=== PATIENT | female | born 1990 | race Caucasian/White ===

== ENCOUNTER 2016-08-29 12:09 | Outpatient (CLI) | payer MEDICAID | END 2016-08-29 12:10 | disposition home or self-care (01) | DX: M47.22 Other spondylosis with radiculopathy, cervical region (principal); M54.2 Cervicalgia ==

== ENCOUNTER 2016-09-20 10:40 | Emergency (ER) | payer MEDICAID ==
[2016-09-20] MEDS ORDERED: ONDANSETRON ODT 4 MG TABLET TL STA (13:02)
[2016-09-20] MEDS ORDERED: ONDANSETRON ODT 4 MG TABLET ONE (13:05)
[2016-09-20] MEDS ORDERED: PROMETHAZINE 25 MG TABLET PO STA (15:18)
[2016-09-20] MEDS ORDERED: AZITHROMYCIN 250 MG TABLET PO STA (15:18)
[2016-09-20] MEDS ORDERED: PROMETHAZINE 25 MG TABLET ONE (15:20)
[2016-09-20] MEDS ORDERED: AZITHROMYCIN 250 MG TABLET PO ONE (15:20)
== END 2016-09-20 15:28 | disposition home or self-care (01) ==
DX: A09 Infectious gastroenteritis and colitis, unspecified (principal); Z87.891 Personal history of nicotine dependence
CPT/HCPCS: 36415; 80053; 81001; 81025; 82270; 83630; 83690; 85025; 87045; 87046; 99283; A9270; Q0162; Q0169

== ENCOUNTER 2016-09-22 12:20 | Emergency (ER) | payer MEDICAID ==
[2016-09-22] MEDS ORDERED: HYDROmorphone 1 MG/ML SYRINGE IVP STA (12:33)
[2016-09-22] MEDS ORDERED: ONDANSETRON 4 MG/2 ML VIAL IVP STA ×2 (12:33→14:06)
[2016-09-22] MEDS ORDERED: SODIUM CHLORIDE 0.9% 1,000 ML IV ONE (12:41)
[2016-09-22] MEDS ORDERED: HYDROmorphone 1 MG/ML SYRINGE ONE (12:45)
[2016-09-22] MEDS ORDERED: ONDANSETRON 4 MG/2 ML VIAL ONE ×2 (12:45→14:07)
[2016-09-22] MEDS ORDERED: METOCLOPRAMIDE 10 MG/2 ML VIAL IVP STA (13:18)
[2016-09-22] MEDS ORDERED: METOCLOPRAMIDE 10 MG/2 ML VIAL IVP ONE (13:19)
[2016-09-22] MEDS ORDERED: IOPAMIDOL-300 100 ML VIAL IVP ONE (13:51)
== END 2016-09-22 15:18 | disposition home or self-care (01) ==
DX: A04.5 Campylobacter enteritis (principal); I88.0 Nonspecific mesenteric lymphadenitis; R03.0 Elevated blood-pressure reading, without diagnosis of hypertension; Z87.891 Personal history of nicotine dependence
CPT/HCPCS: 36415; 74177; 80053; 83690; 85025; 96361; 96374; 96375; 96376; 99283; 99284; J1170; Q9967

== ENCOUNTER 2016-09-27 | Outpatient (CLI) | payer MEDICAID | END 2016-09-27 11:09 | disposition critical access hospital (66) | CPT/HCPCS: A0425; A0427 ==

== ENCOUNTER 2016-09-27 11:40 | Inpatient (IN) | payer MEDICAID ==
[2016-09-27] MEDS ORDERED: HYDROmorphone 1 MG/ML SYRINGE IVP STA ×2 (11:51→13:08)
[2016-09-27] MEDS ORDERED: PROMETHAZINE 25 MG/1 ML VIAL ONE (11:51)
[2016-09-27] MEDS ORDERED: SODIUM CHLORIDE 0.9% 1,000 ML IV ONE ×3 (11:51→21:30)
[2016-09-27] MEDS ORDERED: SODIUM CHLORIDE 0.9% 50 ML IV ONE (11:51)
[2016-09-27] MEDS ORDERED: HYDROmorphone 1 MG/ML SYRINGE ONE ×2 (11:51→13:10)
[2016-09-27] MEDS ORDERED: PROMETHAZINE INJ 25 MG in SODIUM CHLORIDE 0.9% 50 ML IV STA (11:52)
[2016-09-27] MEDS ORDERED: ONDANSETRON 4 MG/2 ML VIAL ONE ×2 (12:26→13:10)
[2016-09-27] MEDS ORDERED: ONDANSETRON 4 MG/2 ML VIAL IVP STA ×2 (12:26→13:08)
[2016-09-27] MEDS ORDERED: METOCLOPRAMIDE 10 MG/2 ML VIAL IVP STA (14:08)
[2016-09-27] MEDS ORDERED: METOCLOPRAMIDE 10 MG/2 ML VIAL IVP ONE (14:09)
[2016-09-27] MEDS ORDERED: LACTATED RINGERS 1,000 ML IV SCH (15:00)
[2016-09-27] MEDS: CIPROFLOXACIN 400 MG/200 ML 200 ML IV SCH (16:18)
[2016-09-27] MEDS: LACTATED RINGERS 1,000 ML IV SCH ×2 (16:18→23:00)
[2016-09-27] MEDS: SODIUM CHLORIDE FLUSH 0.9% 10 ML SYRINGE IVP SCH (16:19)
[2016-09-27] MEDS ORDERED: IOPAMIDOL-300 100 ML VIAL IVP ONE (16:57)
[2016-09-27] MEDS ORDERED: METOCLOPRAMIDE 10 MG/2 ML VIAL IVP PRN (16:59)
[2016-09-27] MEDS: SODIUM CHLORIDE FLUSH 0.9% 10 ML SYRINGE IVP PRN ×3 (17:41→21:58)
[2016-09-27] MEDS: HYDROmorphone 1 MG/ML SYRINGE IVP PRN ×3 (17:41→21:58)
[2016-09-27] MEDS: PANTOPRAZOLE 40 MG VIAL IVP SCH (18:33)
[2016-09-27] MEDS: ONDANSETRON 4 MG/2 ML VIAL IVP PRN (19:01)
[2016-09-27] MEDS: metroNIDAZOLE 500 MG/100 ML 100 ML IV SCH (22:45)
[2016-09-27] MEDS: ACETAMINOPHEN 325 MG TABLET PO PRN (22:52)
[2016-09-28] MEDS: HYDROmorphone 1 MG/ML SYRINGE IVP PRN ×5 (00:14→22:27)
[2016-09-28] MEDS: metroNIDAZOLE 500 MG/100 ML 100 ML IV SCH ×4 (00:14→18:03)
[2016-09-28] MEDS: ZOLPIDEM 5 MG TABLET PO PRN ×2 (00:26→22:28)
[2016-09-28] MEDS: LACTATED RINGERS 1,000 ML IV SCH (00:26)
[2016-09-28] MEDS: CIPROFLOXACIN 400 MG/200 ML 200 ML IV SCH ×2 (04:07→16:16)
[2016-09-28] MEDS: SODIUM CHLORIDE 0.9% 1,000 ML IV SCH ×2 (04:36→06:44)
[2016-09-28] MEDS: ACETAMINOPHEN 325 MG TABLET PO PRN (04:48)
[2016-09-28] MEDS: ONDANSETRON 4 MG/2 ML VIAL IVP PRN ×2 (04:52→19:35)
[2016-09-28] MEDS: PROCHLORPERAZINE 10 MG/2 ML VIAL IVP PRN (06:44)
[2016-09-28] MEDS: SODIUM CHLORIDE FLUSH 0.9% 10 ML SYRINGE IVP SCH ×3 (06:50→20:25)
[2016-09-28] MEDS ORDERED: SODIUM CHLORIDE 0.9% 500 ML IV ONE (07:30)
[2016-09-28] MEDS: PANTOPRAZOLE 40 MG VIAL IVP SCH ×2 (07:53→16:13)
[2016-09-28] MEDS ORDERED: KETOROLAC 30 MG/ML VIAL IVP SCH (08:00)
[2016-09-28] MEDS: SODIUM CHLORIDE FLUSH 0.9% 10 ML SYRINGE IVP PRN ×7 (08:07→22:28)
[2016-09-28] MEDS ORDERED: POTASSIUM PHOSPHATE 15 MMOL in SODIUM CHLORIDE 0.9% 250 ML IV ONE (09:00)
[2016-09-28] MEDS: POLYETHYLENE GLYCOL 3350 17 GM PACKET PO SCH (09:11)
[2016-09-28] MEDS: MULTIVITAMIN W/MINERALS TABLET PO SCH (09:18)
[2016-09-28] MEDS: NEUTRA-PHOS 250 MG TABLET PO SCH (17:23)
[2016-09-28] MEDS: SACCHAROMYCES BOULARDII 250 MG CAPSULE PO SCH (17:23)
[2016-09-29] MEDS: HYDROmorphone 1 MG/ML SYRINGE IVP PRN ×3 (00:57→09:37)
[2016-09-29] MEDS: SODIUM CHLORIDE FLUSH 0.9% 10 ML SYRINGE IVP PRN ×2 (00:58→04:30)
[2016-09-29] MEDS: metroNIDAZOLE 500 MG/100 ML 100 ML IV SCH ×2 (00:58→06:31)
[2016-09-29] MEDS: CIPROFLOXACIN 400 MG/200 ML 200 ML IV SCH (04:30)
[2016-09-29] MEDS: ONDANSETRON 4 MG/2 ML VIAL IVP PRN (05:47)
[2016-09-29] MEDS: SODIUM CHLORIDE FLUSH 0.9% 10 ML SYRINGE IVP SCH ×2 (05:47→10:29)
[2016-09-29] MEDS: PROCHLORPERAZINE 10 MG/2 ML VIAL IVP PRN ×2 (06:26→10:28)
[2016-09-29] MEDS: PANTOPRAZOLE 40 MG VIAL IVP SCH (06:30)
[2016-09-29] MEDS: POLYETHYLENE GLYCOL 3350 17 GM PACKET PO SCH (08:38)
[2016-09-29] MEDS: SACCHAROMYCES BOULARDII 250 MG CAPSULE PO SCH (08:54)
[2016-09-29] MEDS: NEUTRA-PHOS 250 MG TABLET PO SCH ×2 (08:54→12:18)
[2016-09-29] MEDS ORDERED: CIPROFLOXACIN 250 MG TABLET PO SCH (12:00)
[2016-09-29] MEDS ORDERED: POTASSIUM CHLORIDE 20 MEQ TABLET PO SCH (12:00)
[2016-09-29] MEDS: MULTIVITAMIN W/MINERALS TABLET PO SCH (12:18)
[2016-09-29] MEDS ORDERED: metroNIDAZOLE 250 MG TABLET PO SCH (14:00)
== END 2016-09-29 13:18 | disposition home or self-care (01) | DRG 373 ==
DX: A04.5 Campylobacter enteritis (principal); E86.0 Dehydration; E83.51 Hypocalcemia; E83.39 Other disorders of phosphorus metabolism; I88.0 Nonspecific mesenteric lymphadenitis; Z87.891 Personal history of nicotine dependence

== ENCOUNTER 2016-10-07 12:28 | Outpatient (CLI) | payer MEDICAID ==
[2016-10-07] MEDS ORDERED: GADOBUTROL 7.5 MMOL/7.5 ML VIAL IVP ONE (13:32)
== END 2016-10-07 12:29 | disposition home or self-care (01) ==
DX: G44.52 New daily persistent headache (NDPH) (principal)
CPT/HCPCS: 70553; A9585

== ENCOUNTER 2017-03-03 14:09 | Outpatient (CLI) | payer MEDICAID ==
[2017-03-03 17:51] LABS: BASOPHILS % (AUTO) 0.6 %; EOSINOPHILS # (AUTO) 0.1 10^3/uL (0.0-0.7); EOSINOPHILS % (AUTO) 1.6 %; HCT - HEMATOCRIT 39.7 % (37.0-47.0); HGB - HEMOGLOBIN 13.2 g/dL (12.0-16.0); LYMPHOCYTES # (AUTO) 3.2 10^3/uL (1.5-3.5); LYMPHOCYTES % (AUTO) 41.6 %; MEAN CORPUSCULAR HEMOGLOBIN 28.8 pg (27.0-31.0); MEAN CORPUSCULAR HGB CONC 33.3 g/dL (32.0-36.0); MEAN CORPUSCULAR VOLUME 86.6 fL (81.0-99.0); MEAN PLATELET VOLUME 8.2 fL (7.9-10.8); MONOCYTES # (AUTO) 0.5 10^3/uL (0.0-1.0); MONOCYTES % (AUTO) 6.8 %; NEUTROPHILS # (AUTO) 3.8 10^3/uL (1.5-6.6); NEUTROPHILS % (AUTO) 49.4 %; RED BLOOD COUNT 4.58 10^6/uL (4.20-5.40); RED CELL DISTRIBUTION WIDTH 13.1 % (12.0-15.0); UNCORRECTED WHITE BLOOD COUNT 7.6 x10^3/uL; WHITE BLOOD COUNT 7.6 x10^3/uL (4.8-10.8)
[2017-03-03 18:31] LABS: ALBUMIN/GLOBULIN RATIO 1.6 (1.0-2.2); BILIRUBIN,TOTAL 0.4 mg/dL (0.2-1.0); CALCIUM 9.6 mg/dL (8.5-10.3); CREATININE 1.1 mg/dL (0.4-1.0); POTASSIUM 3.5 mmol/L (3.5-5.0); TOTAL PROTEIN 7.5 g/dL (6.7-8.2)
== END 2017-03-03 14:10 | disposition home or self-care (01) ==
LOC: LAB.F 14:09
PROVIDERS: ATTEND Nurse Practitioner Family
DX: R10.9 Unspecified abdominal pain (principal)
CPT/HCPCS: 36415; 80053; 82150; 83540; 83690; 83735; 84466; 85025

== ENCOUNTER 2017-03-11 11:56 | Outpatient (CLI) | payer MEDICAID ==
[2017-03-11] MEDS: IOPAMIDOL-300 100 ML VIAL IVP ONE (13:57)
[2017-03-11] MEDS: IOPAMIDOL-300 50 ML VIAL PO ONE (14:01)
--- NOTE | 2017-03-11 15:12 | CT Report ---
EXAM: CT ABDOMEN AND PELVIS EXAM DATE: 03/11/2017 01:51 PM. CLINICAL HISTORY: Abdominal pain COMPARISONS: Abdomen and pelvis CT 07/27/2017. TECHNIQUE: Routine helical CT imaging was performed through the abdomen and pelvis. IV contrast: 100 cc [id number]. Enteric contrast: Yes. Reconstructions: Coronal and sagittal. In accordance with CT protocol optimization, one or more of the following dose reduction techniques w ere utilized for this exam: automated exposure control, adjustment of mA and/or KV based on patient s ize, or use of iterative reconstructive technique. FINDINGS: Lung Bases: Unremarkable. Liver: Mildly decreased density of the liver diffusely without focal lesion. Gallbladder/Bile Ducts: Unremarkable. Spleen: Normal. Pancreas: Normal. Adrenal Glands: Normal. Kidneys: Normal. No masses or hydronephrosis. Peritoneal Cavity/Bowel: Normal. No free fluid, free air or adenopathy. No masses or acute inflammato ry process. The appendix is well visualized and normal. Pelvic Organs: The bladder is unremarkable and the uterus is anteverted. Note is made of a 3.5 cm lef t ovarian cyst. Vasculature: No aneurysms or other significant abnormality. Bones: No significant abnormality. Other: None. IMPRESSION: 1. No dilated bowel or focal inflammation. 2. Simple appearing left ovarian cyst measuring 3.5 cm. 3. Diffuse fatty infiltration of the liver. [facility] Referring Provider Line: [phone] SITE ID: [id number]
== END 2017-03-11 11:57 | disposition home or self-care (01) ==
LOC: DI 11:56
PROVIDERS: ATTEND Nurse Practitioner Family
DX: R10.9 Unspecified abdominal pain (principal); N83.202 Unspecified ovarian cyst, left side; K76.0 Fatty (change of) liver, not elsewhere classified
CPT/HCPCS: 74177; Q9967

== ENCOUNTER 2017-04-04 14:54 | Outpatient (CLI) | payer MEDICAID ==
[2017-04-04 19:48] LABS: CREATININE 0.8 mg/dL (0.4-1.0); POTASSIUM 3.4 mmol/L (3.5-5.0)
== END 2017-04-04 14:55 | disposition home or self-care (01) ==
LOC: LAB.F 14:54
PROVIDERS: ATTEND Nurse Practitioner Family
DX: R19.4 Change in bowel habit (principal)
CPT/HCPCS: 36415; 80048; 84443

== ENCOUNTER 2017-09-05 09:22 | Outpatient (CLI) | payer MEDICAID | END 2017-09-05 09:23 | disposition home or self-care (01) | LOC: LAB.F 09:22 | PROVIDERS: ATTEND Nurse Practitioner Family | DX: N91.1 Secondary amenorrhea (principal) | CPT/HCPCS: 36415; 84702 ==

== ENCOUNTER 2017-09-07 14:43 | Outpatient (CLI) | payer MEDICAID | END 2017-09-07 14:44 | disposition home or self-care (01) | LOC: LAB.F 14:43 | PROVIDERS: ATTEND Midwife | DX: O20.0 Threatened abortion (principal) | CPT/HCPCS: 36415; 84702 ==

== ENCOUNTER 2018-03-30 07:33 | Outpatient (CLI) | payer MEDICAID ==
--- NOTE | 2018-03-30 11:13 | Ultrasound Report ---
Reason: ABDOMINAL PAIN, RUQ Procedure Date: 03/30/2018 Accession Number: [id number] / [id number] Procedure: US - Abdomen Limited CPT Code: FULL RESULT: EXAM: ABDOMEN ULTRASOUND LIMITED, RUQ EXAM DATE: 03/30/2018 08:07 AM. CLINICAL HISTORY: Right upper quadrant abdominal pain. COMPARISON: None. TECHNIQUE: Real-time scanning was performed with static images obtained. FINDINGS: Liver: Normal in size and echotexture. Liver measures at least 21 cm. Main portal vein flow: Hepatopetal. Gallbladder: Normal. No stones, wall thickening, or sonographic Oden's sign. Biliary System: CBD measures 5 mm. No intrahepatic or extrahepatic ductal dilatation. Other: The right kidney measures up to 12.8 cm in maximal sagittal dimension and demonstrates an extrarenal pelvis as well as questionable mild pelvicaliectasis. IMPRESSION: Extrarenal pelvis with mild pelvicaliectasis. No cholecystitis. [facility]
== END 2018-03-30 07:34 | disposition home or self-care (01) ==
LOC: DI 07:33
PROVIDERS: ATTEND Internal Medicine
DX: N13.30 Unspecified hydronephrosis (principal); R10.11 Right upper quadrant pain
CPT/HCPCS: 76705

== ENCOUNTER 2018-07-06 18:49 | Outpatient (CLI) | payer MEDICAID ==
--- NOTE | 2018-07-07 02:20 | Ultrasound Report ---
Reason: PELVIC AND PERINEAL PAIN, LACTATING MOTHER Procedure Date: 07/06/2018 Accession Number: [id number] / [id number] Procedure: US - Pelvic w/Transvaginal CPT Code: FULL RESULT: EXAM: PELVIC ULTRASOUND EXAM DATE: 07/06/2018 07:31 PM. CLINICAL HISTORY: PELVIC AND PERINEAL PAIN, LACTATING MOTHER. COMPARISON: None. TECHNIQUE: Realtime transabdominal pelvic scan performed to identify the uterus and adnexa and as an overview of other pelvic structures, followed by transvaginal scan to provide greater detail of the uterus and adnexa, with static image documentation. FINDINGS: Uterus: 9.3 x 6 x 3.5 cm, volume 102 cc. Anteverted position. Normal overall size and echotexture. Masses: None. Endometrium: 5.4 mm. No endometrial mass or polyp. Cervix: Unremarkable. Right Ovary: 2.6 x 1.4 x 1.2 cm, volume 2.3 cc. Normal echotexture and blood flow. Small simple cyst noted. Left Ovary: 2.4 x 1.6 x 1.6 cm, volume 6.1 cc. Normal echotexture and blood flow. Small simple cysts are noted. Free Fluid: None. Other: None. IMPRESSION: Normal pelvic ultrasound. [facility]
== END 2018-07-06 18:50 | disposition home or self-care (01) ==
LOC: DI 18:49
PROVIDERS: ATTEND Midwife
DX: Z39.1 Encounter for care and examination of lactating mother (principal); R10.2 Pelvic and perineal pain
CPT/HCPCS: 76830; 76856

== ENCOUNTER 2019-01-14 13:42 | Outpatient (CLI) | payer MEDICAID ==
[2019-01-14 17:10] LABS: BASOPHILS # (AUTO) 0.1 10^3/uL (0.0-0.1); BASOPHILS % (AUTO) 0.9 %; EOSINOPHILS # (AUTO) 0.1 10^3/uL (0.0-0.7); EOSINOPHILS % (AUTO) 1.5 %; LYMPHOCYTES # (AUTO) 2.3 10^3/uL (1.5-3.5); LYMPHOCYTES % (AUTO) 36.7 %; MEAN CORPUSCULAR HEMOGLOBIN 28.7 pg (27.0-31.0); MEAN CORPUSCULAR VOLUME 84.4 fL (81.0-99.0); MEAN PLATELET VOLUME 8.1 fL (7.9-10.8); MONOCYTES # (AUTO) 0.4 10^3/uL (0.0-1.0); MONOCYTES % (AUTO) 6.2 %; NEUTROPHILS # (AUTO) 3.5 10^3/uL (1.5-6.6); NEUTROPHILS % (AUTO) 54.7 %; PLT - PLATELET COUNT 298 10^3/uL (130-450); RED BLOOD COUNT 4.55 10^6/uL (4.20-5.40); RED CELL DISTRIBUTION WIDTH 13.4 % (12.0-15.0); WHITE BLOOD COUNT 6.4 x10^3/uL (4.8-10.8)
[2019-01-14 17:27] LABS: ALBUMIN 4.3 g/dL (3.2-5.5); ALBUMIN/GLOBULIN RATIO 1.4 (1.0-2.2); ALKALINE PHOSPHATASE 70 IU/L (42-121); ALT ALANINE AMINOTRANSFERASE 27 IU/L (10-60); AST ASPARTATE AMINOTRANSFERASE 23 IU/L (10-42); BILIRUBIN,TOTAL 0.4 mg/dL (0.2-1.0); BUN - BLOOD UREA NITROGEN 14 mg/dL (6-20); CALCIUM 9.7 mg/dL (8.5-10.3); CARBON DIOXIDE - CO2 23 mmol/L (21-32); CHLORIDE 104 mmol/L (101-111); CHOL/HDL RATIO 6.2 (<4.4); CHOLESTEROL 274 mg/dL; CREATININE 0.7 mg/dL (0.4-1.0); GFR - MDRD 98 (>89); GLUCOSE 112 mg/dL (70-100); HDL CHOLESTEROL 44 mg/dL; LDL CHOLESTEROL,CALCULATED 153 mg/dL; LDL/HDL RATIO 3.5 (<4.4); SODIUM 138 mmol/L (135-145); TOTAL PROTEIN 7.4 g/dL (6.7-8.2); VLDL CHOLESTEROL 77 mg/dL
[2019-01-14 18:00] LABS: HB2 TOTAL 13.1 g/dL; HEMOGLOBIN A1C 0.53 g/dL; HEMOGLOBIN A1C % 5.9 % (4.6-6.2)
== END 2019-01-14 13:43 | disposition home or self-care (01) ==
LOC: LAB.F 13:42
PROVIDERS: ATTEND Registered Nurse
DX: R63.5 Abnormal weight gain (principal); R06.83 Snoring; R53.83 Other fatigue
CPT/HCPCS: 36415; 80053; 80061; 83036; 83721; 84443; 85025

== ENCOUNTER 2019-05-30 08:00 | Outpatient (CLI) | payer MEDICAID ==
[2019-05-30 20:52] LABS: CANDIDA GROUP DNA NEGATIVE (NEGATIVE); CANDIDA KRUSEI DNA NEGATIVE (NEGATIVE); TRICHOMONAS VAGINALIS DNA NEGATIVE (NEGATIVE)
== END 2019-05-30 08:01 | disposition home or self-care (01) ==
LOC: LAB.R 08:00
PROVIDERS: ATTEND Family Medicine
DX: N76.0 Acute vaginitis (principal)
CPT/HCPCS: 87661; 87801

== ENCOUNTER 2019-11-29 08:00 | Outpatient (CLI) | payer MEDICAID | END 2019-11-29 23:59 | disposition home or self-care (01) | LOC: LAB.WCP 08:00 | PROVIDERS: ATTEND Registered Nurse | DX: R10.9 Unspecified abdominal pain (principal) | CPT/HCPCS: 87086 ==

== ENCOUNTER 2019-12-13 14:48 | Outpatient (CLI) | payer MEDICAID ==
--- NOTE | 2019-12-14 16:19 | CT Report ---
Reason: ACUTE ABDOMINAL PAIN Procedure Date: 12/13/2019 Accession Number: [id number] / [id number] Procedure: CT - Abdomen/Pelvis WO CPT Code: Final Report FULL RESULT: EXAM: CT ABDOMEN AND PELVIS (CT KUB) EXAM DATE: 12/13/2019 02:59 PM. CLINICAL HISTORY: ACUTE ABDOMINAL PAIN.. Technologist notes: Acute left lower quadrant abdominal pain for 2 weeks, history of constipation, dark urine, concern for kidney stones. COMPARISONS: ABDOMEN/PELVIS W/ 03/11/2017 1:42 PM. TECHNIQUE: Routine axial helical CT imaging was performed through the abdomen and pelvis without IV contrast. Reconstructions: Coronal and sagittal. In accordance with CT protocol optimization, one or more of the following dose reduction techniques were utilized for this exam: automated exposure control, adjustment of mA and/or KV based on patient size, or use of iterative reconstructive technique. FINDINGS: Lung Bases: Unremarkable. Right Kidney/Ureter: No stones, hydronephrosis, or hydroureter. No perinephric fat stranding. Left Kidney/Ureter: No stones, hydronephrosis, or hydroureter. No perinephric fat stranding. Other Solid Organs: Noncontrast images of the solid organs are grossly unremarkable. Gallbladder/Bile Ducts: Unremarkable. Peritoneal Cavity: No free fluid, free air or gregor adenopathy. Areas of apparent mild colonic wall thickening may relate to nondistention versus mild nonspecific colitis. Bowel is otherwise grossly unremarkable. Appendix is normal. There are clustered right lower quadrant mesenteric nodes measuring up to approximately 9 x 12 mm (3/78) Pelvic Organs: No bladder stones or wall thickening. Noncontrast images of the visualized pelvic organs are unremarkable. Vasculature: Unremarkable. Other: No asymmetric sclerosis of the left pubic greater than right pubic bodies, may be degenerative. There is additionally asymmetric sclerosis of the medial right ilium at the SI joint which is increased from prior. IMPRESSION: 1. No hydronephrosis or convincing renal or ureteral calculi. 2. Areas of apparent mild colonic wall thickening may relate to nondistention versus mild nonspecific colitis. 3. Clustered right lower quadrant mesenteric lymph nodes with normal-appearing appendix, could reflect mesenteric adenitis in the correct clinical context. 4. Asymmetric sclerosis of the left greater than right pubic bodies, possibly degenerative. 5. Suggestion of asymmetric chronic right sacroiliitis. 6. Other findings as noted above. [facility]
== END 2019-12-13 14:49 | disposition home or self-care (01) ==
LOC: DI 14:48
PROVIDERS: ATTEND Registered Nurse
DX: R10.9 Unspecified abdominal pain (principal)
CPT/HCPCS: 74176

== ENCOUNTER 2019-12-27 12:09 | Outpatient (CLI) | payer MEDICAID ==
[2019-12-27 12:31] LABS: BASOPHILS # (AUTO) 0.1 10^3/uL (0.0-0.1); BASOPHILS % (AUTO) 0.6 %; EOSINOPHILS # (AUTO) 0.1 10^3/uL (0.0-0.7); EOSINOPHILS % (AUTO) 1.5 %; HGB - HEMOGLOBIN 14.3 g/dL (12.0-16.0); LYMPHOCYTES # (AUTO) 2.5 10^3/uL (1.5-3.5); LYMPHOCYTES % (AUTO) 30.1 %; MEAN CORPUSCULAR HEMOGLOBIN 28.5 pg (27.0-31.0); MEAN CORPUSCULAR HGB CONC 32.8 g/dL (32.0-36.0); MEAN PLATELET VOLUME 9.8 fL (7.9-10.8); MONOCYTES # (AUTO) 0.6 10^3/uL (0.0-1.0); MONOCYTES % (AUTO) 7.8 %; NEUTROPHILS # (AUTO) 4.9 10^3/uL (1.5-6.6); NEUTROPHILS % (AUTO) 59.8 %; PLT - PLATELET COUNT 253 10^3/uL (130-450); RED BLOOD COUNT 5.01 10^6/uL (4.20-5.40); RED CELL DISTRIBUTION WIDTH 13.4 % (12.0-15.0); WHITE BLOOD COUNT 8.3 x10^3/uL (4.8-10.8)
[2019-12-27 12:48] LABS: BILIRUBIN,URINE NEGATIVE (NEGATIVE); GLUCOSE, URINE (UA) NEGATIVE (NEGATIVE); KETONES,URINE (UA) NEGATIVE (NEGATIVE); LEUKOCYTE ESTERASE, URINE NEGATIVE (NEGATIVE); NITRITE,URINE NEGATIVE (NEGATIVE); OCCULT BLOOD,URINE NEGATIVE (NEGATIVE); PROTEIN,URINE NEGATIVE (NEGATIVE); UROBILINOGEN,URINE 0.2 (NORMAL) E.U./dL (NORMAL)
[2019-12-27 12:51] LABS: CLARITY,URINE CLEAR (CLEAR)
[2019-12-27 12:54] LABS: ALBUMIN 4.4 g/dL (3.2-5.5); ALBUMIN/GLOBULIN RATIO 1.3 (1.0-2.2); BILIRUBIN,TOTAL 0.8 mg/dL (0.2-1.0); CALCIUM 9.2 mg/dL (8.5-10.3); CREATININE 0.8 mg/dL (0.4-1.0); TOTAL PROTEIN 7.9 g/dL (6.7-8.2)
[2019-12-27 12:58] LABS: HB2 TOTAL 15.2 g/dL; HEMOGLOBIN A1C 0.53 g/dL; HEMOGLOBIN A1C % 5.3 % (4.6-6.2)
== END 2019-12-27 12:10 | disposition home or self-care (01) ==
LOC: LAB 12:09
PROVIDERS: ATTEND Physician Assistant
DX: R73.9 Hyperglycemia, unspecified (principal); R14.0 Abdominal distension (gaseous); R11.2 Nausea with vomiting, unspecified; R10.9 Unspecified abdominal pain; Z80.0 Family history of malignant neoplasm of digestive organs
CPT/HCPCS: 36415; 80053; 81001; 81003; 83036; 84443; 84702; 85025; 87086

== ENCOUNTER 2019-12-31 12:00 | Emergency (ER) | payer MEDICAID ==
[2019-12-31] MEDS ORDERED: HYDROmorphone 2 MG/ML VIAL IM STA (12:52)
--- NOTE | 2019-12-31 13:26 | ED Physician Documentation ---
History of Present Illness - Stated complaint Stated Complaint: BACK PX - Chief complaint Chief Complaint: Back Pain - History obtained from History obtained from: Patient - History of Present Illness Timing: Prior to arrival Pain level max: 9 Pain level now: 9 Severity Comments: sharp; radiates across the low back bilaterally Improved by: percocet at home Worsened by: standing, laying, walking - Additonal information Additional information: 29 year old female here with acute onset low back pain. reports lifting a heavy wheelbarrow yesterday afternoon/evening. she felt a sudden sharp pull in her low back and dropped immediately to the ground. Since then "excruciating" low back pain. No fevers. no saddle anesthesia. No hx of IVDU, cancer or spinal surgery. pt took motrin at home without relief, then took her moth in laws percocet which helped some. pt has a hx of low back pain and sciatica, but this is different from her "normal pain." she went to the chiropractor this am, but he "would not touch me" until he received adequate pain control and imaging Review of Systems Constitutional: denies: Fever, Weight Loss Cardiac: denies: Chest pain / pressure, Palpitations, Calf pain Respiratory: denies: Dyspnea GI: denies: Abdominal Pain, Nausea, Vomiting : denies: Dysuria Skin: denies: Rash, Lesions Musculoskeletal: reports: Back pain. denies: Extremity pain Neurologic: denies: Focal weakness, Numbness Psychiatric: denies: Depressed, Suicidal Endocrine: denies: Polydypsia, Polyuria, Polyphagia Immunocompromised: reports: Reviewed and negative PD PAST MEDICAL HISTORY - Past Medical History Past Medical History: Yes Cardiovascular: None Respiratory: Pneumonia Endocrine/Autoimmune: None GI: None, Other (colitis) : None HEENT: None Psych: None Musculoskeletal: None, Other (hx of low back pain and sciatica) Derm: None Other Past Medical History: cholecystitis - Past Surgical History Past Surgical History: No - Present Medications Home Medications: Ambulatory Orders Medication Instructions Recorded Confirmed Acetaminophen [Tylenol] 650 mg PO Q4HR PRN #0 tablet 09/29/16 Ciprofloxacin [Cipro] 500 mg PO BID 7 Days tablet 09/29/16 HYDROmorphone [Dilaudid] 1 mg PO Q6H #5 tablet 09/29/16 Ondansetron HCl [Zofran] 4 mg PO RTQ6H PRN #20 tablet 09/29/16 Pantoprazole [Protonix inj] 40 mg IVP BIDAC #30 vial 09/29/16 Saccharomyces Boulardii [Florastor] 250 mg PO BID #10 capsule 09/29/16 metroNIDAZOLE [Flagyl] 500 mg PO Q8HR 7 Days tablet 09/29/16 Cyclobenzaprine [Flexeril] 10 mg PO TID PRN #20 tablet 12/31/19 predniSONE [Prednisone] 40 mg PO DAILY 5 Days #10 tablet 12/31/19 - Allergies Allergies/Adverse Reactions: Allergies Allergy/AdvReac Type Severity Reaction Status Date / Time amoxicillin [Amoxicillin] Allergy Intermediate Rash Verified 12/31/19 12:03 Penicillins Allergy Intermediate Rash Verified 12/31/19 12:03 - Social History Does the pt smoke?: No Smoking Status: Never smoker Does the pt drink ETOH?: No Does the pt have substance abuse?: No - Immunizations Immunizations are current?: Yes Immunizations: TDAP current <10years PD ED PE NORMAL - General General: Alert and oriented X 3, No acute distress - HEENT HEENT: Atraumatic - Neck Neck: No bony TTP, No adenopathy - Cardiac Cardiac: RRR, No murmur - Respiratory Respiratory: No respiratory distress - Abdomen Abdomen: Normal bowel sounds, Non tender - Back Back: No CVA TTP, Other (diffuse pain across the lower lumbar paraspinous. no midlien spinous process tenderness; motor strength 5/5 BLE; 2+ patellar reflexes bialterally. antalgic gait, favors left leg. able to walk on heels) Results - Vitals Vitals: Vital Signs - 24 hr 12/31/19 12/31/19 12:03 14:14 Temperature 36.9 C Heart Rate 94 77 Respiratory 20 20 Rate Blood Pressure 135/88 H 133/82 H O2 Saturation 97 97 Oxygen O2 Source Room air - Rads (name of study) lumbar Radiology: Final report received, Other (no acute fx or dislocation) PD MEDICAL DECISION MAKING - ED course Complexity details: reviewed results, re-evaluated patient, considered differential ED course: 29 year old presents to the ED with cc of low back pain after heavy wheelbarrow lifting yesterday. no clinical red flags - lumbar films show no acute pathology - will trial steroid burst for 5 days and follow up with naprosyn - pt has f/u scheduled with her pcp in 2 days time - reassuring exam with pain improved following dilaudid. no red flags Departure - Departure Disposition: Home, Self Care Clinical Impression: Low back pain Qualifiers: Chronicity: acute Back pain laterality: bilateral Sciatica presence: without sciatica Qualified Code(s): M54.5 - Low back pain Condition: Good Record reviewed to determine appropriate education?: Yes Instructions: ED Low Back Pain Injury Follow-Up: Savannah Cast ARNP [Primary Care Provider] - Within 1 week Prescriptions: Cyclobenzaprine [Flexeril] 10 mg PO TID PRN #20 tablet PRN Reason: Spasms predniSONE [Prednisone] 40 mg PO DAILY 5 Days #10 tablet Comments: Spring, I will call you if there is an abnormal reading on your xray, otherwise assume it was normal Let's have you take prednisone every day as prescribed for 5 days. Once you finish the prednisone, you may take over the counter pain medicatins like motrin or naprosyn. I also ordered a muscle relaxer please see your primary doctor on for follow up as scheduled. Return here for worsening symptoms, numbness between yrou lefs or inability ot control bowel or bladder function Discharge Date/Time: 12/31/19 15:08
[2019-12-31] MEDS ORDERED: ONDANSETRON ODT 4 MG TABLET TL STA (13:54)
[2019-12-31] MEDS ORDERED: ONDANSETRON 4 MG/2 ML VIAL IM STA (14:08)
[2019-12-31 14:15] VITALS: BP 133/82
--- NOTE | 2019-12-31 17:47 | XRAY Report ---
Reason: sudden pain when lifting wheelbarrow Procedure Date: 12/31/2019 Accession Number: [id number] / [id number] Procedure: XR - Lumbar Spine 2 View CPT Code: Final Report FULL RESULT: PROCEDURE: Lumbar Spine 2 View INDICATIONS: sudden pain when lifting wheelbarrow TECHNIQUE: 2 views of the lumbar spine were acquired. COMPARISON: None. FINDINGS: Bones: 5 [id number] vertebrae are present. There is a mild curvature of the lumbar spine centered at L3. Minimal retrolisthesis demonstrated at L1-L2, L2-L3, L3-L4, and L4-5. There is mild facet arthropathy at L5-S1. Disc spaces appear preserved. No vertebral body compression fractures. No suspicious bony lesions. Soft tissues: Overlying bowel gas pattern is normal. No suspicious soft tissue calcifications. IMPRESSION: 1. Mild leftward curvature of the lumbar spine. 2. Minimal multilevel retrolisthesis throughout the lumbar spine. 3. Mild facet arthropathy at L5-S1. Reviewed by: Manuel Monsalve MD on 12/31/2019 1:32 PM PDT Approved by: Manuel Monsalve MD on 12/31/2019 1:32 PM PDT Station ID: [id number]
== END 2019-12-31 15:08 | disposition home or self-care (01) ==
LOC: ED 12:00
DX: M54.5 Low back pain (principal)
CPT/HCPCS: 72100; 96372; 99283; 99284; J1170; Q0162

== ENCOUNTER 2020-03-12 15:40 | Outpatient (CLI) | payer MEDICAID ==
[2020-03-12 20:18] LABS: ALBUMIN 4.5 g/dL (3.2-5.5); ALBUMIN/GLOBULIN RATIO 1.4 (1.0-2.2); BILIRUBIN,TOTAL 0.6 mg/dL (0.2-1.0); CALCIUM 9.5 mg/dL (8.5-10.3); CREATININE 0.7 mg/dL (0.4-1.0); TOTAL PROTEIN 7.7 g/dL (6.7-8.2)
== END 2020-03-12 15:41 | disposition home or self-care (01) ==
LOC: LAB.S 15:40
PROVIDERS: ATTEND Physician Assistant
DX: R11.2 Nausea with vomiting, unspecified (principal); R63.4 Abnormal weight loss; R10.11 Right upper quadrant pain; R19.7 Diarrhea, unspecified; K62.5 Hemorrhage of anus and rectum
CPT/HCPCS: 36415; 80053; 81599; 84443

== ENCOUNTER 2020-03-17 11:15 | Outpatient (CLI) | payer MEDICAID | END 2020-03-17 11:16 | disposition home or self-care (01) | LOC: LAB.S 11:15 | PROVIDERS: ATTEND Physician Assistant | DX: R10.9 Unspecified abdominal pain (principal); Z20.828 Contact with and (suspected) exposure to other viral communicable diseases; R11.2 Nausea with vomiting, unspecified; R19.7 Diarrhea, unspecified; R53.83 Other fatigue; R59.0 Localized enlarged lymph nodes; J02.9 Acute pharyngitis, unspecified; R14.0 Abdominal distension (gaseous); K92.1 Melena; Z80.0 Family history of malignant neoplasm of digestive organs | CPT/HCPCS: 36415; 81599; 85651; 86140; 86664; 86665; 87045; 87046; 87177; 87209 ==

== ENCOUNTER 2020-04-02 13:11 | Outpatient (CLI) | payer MEDICAID ==
[2020-04-02 15:27] LABS: BASOPHILS % (AUTO) 0.6 %; EOSINOPHILS # (AUTO) 0.1 10^3/uL (0.0-0.7); EOSINOPHILS % (AUTO) 1.5 %; HGB - HEMOGLOBIN 13.7 g/dL (12.0-16.0); LYMPHOCYTES # (AUTO) 2.7 10^3/uL (1.5-3.5); LYMPHOCYTES % (AUTO) 38.5 %; MEAN CORPUSCULAR HEMOGLOBIN 29.2 pg (27.0-31.0); MEAN CORPUSCULAR HGB CONC 33.5 g/dL (32.0-36.0); MEAN CORPUSCULAR VOLUME 87.2 fL (81.0-99.0); MEAN PLATELET VOLUME 10.2 fL (7.9-10.8); MONOCYTES # (AUTO) 0.4 10^3/uL (0.0-1.0); MONOCYTES % (AUTO) 6.4 %; NEUTROPHILS # (AUTO) 3.6 10^3/uL (1.5-6.6); NEUTROPHILS % (AUTO) 52.7 %; PLT - PLATELET COUNT 277 10^3/uL (130-450); RED BLOOD COUNT 4.69 10^6/uL (4.20-5.40); RED CELL DISTRIBUTION WIDTH 12.6 % (12.0-15.0); WHITE BLOOD COUNT 6.9 x10^3/uL (4.8-10.8)
== END 2020-04-02 13:12 | disposition home or self-care (01) ==
LOC: LAB.S 13:11
PROVIDERS: ATTEND Physician Assistant
DX: R11.2 Nausea with vomiting, unspecified (principal); R63.4 Abnormal weight loss; R10.11 Right upper quadrant pain
CPT/HCPCS: 85025

== ENCOUNTER 2020-08-17 17:20 | Outpatient (CLI) | payer MEDICAID ==
--- NOTE | 2020-08-17 18:15 | CT Report ---
PROCEDURE: HEAD WO INDICATIONS: CONTUSION OF OTHER PART OF HEAD, INITIAL ENCOUNTER TECHNIQUE: Noncontrast 4.5 mm thick angled axial sections acquired from the foramen magnum to the vertex. For r adiation dose reduction, the following was used: automated exposure control, adjustment of mA and/or kV according to patient size. COMPARISON: Concurrent CT of the orbits, brain MRI 10/07/2016. FINDINGS: Image quality: Excellent. CSF spaces: Basal cisterns are patent. No extra-axial fluid collections. Ventricles are normal in size and shape. Brain: No intracranial hemorrhage, mass, or mass effect. Mckee-white matter interface is normal. Skull and face: Calvarium and visualized facial bones are intact, without suspicious lesions. Sinuses: Visualized sinuses and mastoids are clear. IMPRESSION: 1. No acute intracranial abnormality. Reviewed by: Manuel Monsalve MD on 08/17/2020 6:14 PM PST Approved by: Manuel Monsalve MD on 08/17/2020 6:14 PM PST Station ID: [id number]
--- NOTE | 2020-08-17 18:17 | CT Report ---
PROCEDURE: ORBITS WO INDICATIONS: CONTUSION OF OTHER PART OF HEAD, INITIAL ENCOUNTER TECHNIQUE: Noncontrast 3.0 mm axial images acquired through the orbits. COMPARISON: Concurrent CT of the head. FINDINGS: Image quality: Excellent. Orbits: There is right periorbital soft tissue swelling. Globes are symmetrical and intact. No radi opaque foreign bodies. The optic nerves are normal in size. No intraorbital fluid collections. No r etrobulbar masses or fat abnormalities. The extra-ocular muscles are normal and symmetrical in appea matti. Lacrimal glands are normal in size. Optic chiasm is normal. Intracranial: Visualized portions of the cerebral hemispheres, brainstem, and spinal cord are normal . Bones and sinuses: Visualized calvarium and facial bones appear intact. Visualized sinuses and mast oids are clear. IMPRESSION: 1. Right periorbital soft tissue swelling without intraorbital fluid collections. The globes appear i ntact. Reviewed by: Manuel Monsalve MD on 08/17/2020 6:16 PM PST Approved by: Manuel Monsalve MD on 08/17/2020 6:16 PM PST Station ID: [id number]
== END 2020-08-17 17:21 | disposition home or self-care (01) ==
LOC: DI 17:20
PROVIDERS: ATTEND Physician Assistant Medical
DX: R93.0 Abnormal findings on diagnostic imaging of skull and head, not elsewhere classified (principal)

== ENCOUNTER 2021-01-18 03:09 | Outpatient (CLI) | payer MEDICAID | END 2021-01-18 03:10 | disposition critical access hospital (66) | LOC: EMS 03:09 | DX: R11.2 Nausea with vomiting, unspecified (principal); R19.7 Diarrhea, unspecified; R07.89 Other chest pain; R10.31 Right lower quadrant pain | CPT/HCPCS: A0425; A0427; A0999 ==

== ENCOUNTER 2021-01-18 03:40 | Emergency (ER) | payer MEDICAID ==
[2021-01-18] MEDS ORDERED: SODIUM CHLORIDE 0.9% 1,000 ML IV STA (03:49)
[2021-01-18] MEDS ORDERED: DROPERIDOL 5 MG/2 ML VIAL IVP STA (03:49)
--- NOTE | 2021-01-18 03:51 | ED Physician Documentation ---
History of Present Illness - Stated complaint Stated Complaint: N/V/D - History obtained from History obtained from: Patient, EMS - Additonal information Additional information: Patient comes emergency department chief complaint of nausea vomiting and diarrhea that started about 3 hours ago. Patient states she was feeling fine when she went to bed last night but woke up in the middle of the night with severe nausea, And ended up vomiting multiple times. Medics states she also was incontinent of very runny diarrhea in route. Review of Systems Ten Systems: 10 systems reviewed and negative Constitutional: reports: Chills. denies: Fever Eyes: reports: Reviewed and negative Ears: reports: Reviewed and negative Nose: reports: Reviewed and negative Throat: reports: Reviewed and negative Cardiac: reports: Reviewed and negative Respiratory: reports: Reviewed and negative GI: reports: Abdominal Pain (Diffuse, cramping), Nausea, Vomiting, Diarrhea : reports: Reviewed and negative Skin: reports: Reviewed and negative Musculoskeletal: reports: Reviewed and negative Neurologic: reports: Reviewed and negative Psychiatric: reports: Reviewed and negative Endocrine: reports: Reviewed and negative Immunocompromised: reports: Reviewed and negative PD PAST MEDICAL HISTORY - Past Medical History Cardiovascular: None Respiratory: Pneumonia Endocrine/Autoimmune: None GI: None, Other (colitis) : None HEENT: None Psych: None Musculoskeletal: None, Other (hx of low back pain and sciatica) Derm: None - Past Surgical History Past Surgical History: No - Present Medications Home Medications: Ambulatory Orders Medication Instructions Recorded Confirmed Acetaminophen [Tylenol] 650 mg PO Q4HR PRN #0 tablet 09/29/16 Ciprofloxacin [Cipro] 500 mg PO BID 7 Days tablet 09/29/16 HYDROmorphone [Dilaudid] 1 mg PO Q6H #5 tablet 09/29/16 Ondansetron HCl [Zofran] 4 mg PO RTQ6H PRN #20 tablet 09/29/16 Pantoprazole [Protonix inj] 40 mg IVP BIDAC #30 vial 09/29/16 Saccharomyces Boulardii [Florastor] 250 mg PO BID #10 capsule 09/29/16 metroNIDAZOLE [Flagyl] 500 mg PO Q8HR 7 Days tablet 09/29/16 Cyclobenzaprine [Flexeril] 10 mg PO TID PRN #20 tablet 12/31/19 predniSONE [Prednisone] 40 mg PO DAILY 5 Days #10 tablet 12/31/19 Ondansetron Odt [Zofran] 4 mg TL Q6H PRN #10 tablet 01/18/21 - Allergies Allergies/Adverse Reactions: Allergies Allergy/AdvReac Type Severity Reaction Status Date / Time amoxicillin [Amoxicillin] Allergy Intermediate Rash Verified 12/31/19 12:03 Penicillins Allergy Intermediate Rash Verified 12/31/19 12:03 - Social History Does the pt smoke?: No Smoking Status: Never smoker Does the pt drink ETOH?: No Does the pt have substance abuse?: No - Immunizations Immunizations are current?: Yes Immunizations: TDAP current <10years PD ED PE NORMAL - Vitals Vital signs reviewed: Yes - General General: Alert and oriented X 3, Well developed/nourished, Other (Patient appears moderately uncomfortable.) - HEENT HEENT: Atraumatic, PERRL, EOMI, Moist mucous membranes - Neck Neck: Supple, no meningeal sign - Cardiac Cardiac: RRR, No murmur, Strong equal pulses - Respiratory Respiratory: No respiratory distress, Clear bilaterally - Abdomen Abdomen: Soft, Non distended, Other (Mild diffuse tenderness without focality.) - Back Back: No CVA TTP - Derm Derm: Normal color, No rash, Other (Cool, diaphoretic) - Extremities Extremities: No deformity, No edema - Neuro Neuro: Alert and oriented X 3, hospital cleaner 2-12 intact, Normal speech, Other (Grossly intact) - Psych Psych: Normal mood, Normal affect Results - Vitals Vitals: Vital Signs - 24 hr 01/18/21 01/18/21 03:56 05:04 Temperature 36.4 C L Heart Rate 68 72 Respiratory 18 18 Rate Blood Pressure 111/85 H 123/84 H O2 Saturation 98 98 Oxygen O2 Source Room air PD MEDICAL DECISION MAKING - ED course Complexity details: considered differential, d/w patient ED course: The patient was treated symptomatically with IV fluids and droperidol, having received Zofran in route without relief. On reevaluation, after treatment in the ED, and was patient was found to be feeling better. I suspect a viral gastroenteritis, and patient has not had any other signs or symptoms to indicate something more serious going on. Her abdomen is benign. We have discussed symptomatic treatment at home and I have given her prescription for ODT Zofran. We have discussed clear liquid diet and the usual indications for follow-up and return. Departure - Departure Disposition: 01 Home, Self Care Clinical Impression: Gastroenteritis Condition: Stable Instructions: ED Gastroenteritis Viral Prescriptions: Ondansetron Odt [Zofran] 4 mg TL Q6H PRN #10 tablet PRN Reason: Nausea / Vomiting Comments: Your symptoms are most consistent with a viral infection of your digestive system. Generally, the nausea and vomiting is the worst in the first 24 hours and tapers off after that. Diarrhea may last for several days. It is important to not try to eat too soon after you have been sick. Please give her stomach arrest for the next 6 to 8 hours, And take the nausea medication every 6 hours while awake. Once you have allowed your stomach to rest, you may take a small sip of water or a few ice chips. Take only a little bit and do not have anything else for the next 15 to 20 minutes. If you hold this down, then you may take another couple of ice chips or couple small sips of water. If you are able to tolerate this For the next hour, then you may slowly increase the amount of water you consume at a time. If you are able to tolerate this for the rest of the day without vomiting, and if you are not feeling ready to try eating, you may try small amount of a simple starches, such as saltine or oyster crackers, Ramen noodles, or white rice. If you tolerate these, then you may advance your diet as tolerated. If at any point you feel very nauseated or vomit again, then back up to the next step, as your stomach is most likely not ready for what you are giving it.
[2021-01-18] MEDS ORDERED: MORPHINE 2 MG/ML CARPUJECT IVP STA (04:34)
[2021-01-18 05:05] VITALS: BP 123/84
== END 2021-01-18 05:42 | disposition home or self-care (01) ==
LOC: EDUNIT# → ED 03:40
DX: K52.9 Noninfective gastroenteritis and colitis, unspecified (principal)
CPT/HCPCS: 96374; 99284

== ENCOUNTER 2022-01-10 20:30 | Outpatient (CLI) | payer MEDICAID ==
--- NOTE | 2022-01-10 18:03 | XRAY Report ---
PROCEDURE: Chest 2 View X-Ray INDICATIONS: FLANK PAIN, LEFT TECHNIQUE: 2 view(s) of the chest. COMPARISON: None. FINDINGS: Surgical changes and devices: None. Lungs and pleura: No pleural effusions or pneumothorax. Lungs are clear. Mediastinum: Mediastinal contours are normal. Heart size is normal. Bones and chest wall: No suspicious bony abnormalities. Soft tissues appear unremarkable. IMPRESSION: No acute cardiopulmonary disease process. Reviewed by: Taylor Elizalde MD, PhD on 01/10/2022 6:02 PM PDT Approved by: Taylor Elizalde MD, PhD on 01/10/2022 6:02 PM PDT Station ID: [id number]
[2022-01-10 20:51] LABS: BILIRUBIN,URINE NEGATIVE (NEGATIVE); GLUCOSE, URINE (UA) NEGATIVE (NEGATIVE); KETONES,URINE (UA) NEGATIVE (NEGATIVE); LEUKOCYTE ESTERASE, URINE NEGATIVE (NEGATIVE); NITRITE,URINE NEGATIVE (NEGATIVE); OCCULT BLOOD,URINE NEGATIVE (NEGATIVE); PROTEIN,URINE NEGATIVE (NEGATIVE); UROBILINOGEN,URINE 0.2 (NORMAL) E.U./dL (NORMAL)
[2022-01-10 21:07] LABS: BACTERIA,URINE None Seen /HPF (None Seen); CLARITY,URINE CLEAR (CLEAR); RBC,URINE 0-5 /HPF (0-5); SQUAMOUS EPITHELIAL CELL,UR FEW Squamous (<= Few); WBC,URINE 0-3 /HPF (0-5)
== END 2022-01-10 20:31 | disposition home or self-care (01) ==
LOC: DI.S 20:30
PROVIDERS: ATTEND Emergency Medicine
DX: R10.9 Unspecified abdominal pain (principal); R30.0 Dysuria
CPT/HCPCS: 81001; 87086

== ENCOUNTER 2022-01-11 09:23 | Emergency (ER) | payer MEDICAID ==
[2022-01-11] MEDS ORDERED: ONDANSETRON 4 MG/2 ML VIAL IVP STA (10:37)
[2022-01-11] MEDS ORDERED: SODIUM CHLORIDE 0.9% 1,000 ML IV STA (10:37)
[2022-01-11] MEDS ORDERED: HYDROmorphone 0.5 MG/0.5 ML SYRINGE IVP STA (10:38)
[2022-01-11] MEDS ORDERED: KETOROLAC 15 MG/ML VIAL IVP STA (10:38)
[2022-01-11 10:50] LABS: BILIRUBIN,URINE NEGATIVE (NEGATIVE); CLARITY,URINE CLEAR (CLEAR); GLUCOSE, URINE (UA) NEGATIVE (NEGATIVE); KETONES,URINE (UA) NEGATIVE (NEGATIVE); LEUKOCYTE ESTERASE, URINE NEGATIVE (NEGATIVE); NITRITE,URINE NEGATIVE (NEGATIVE); OCCULT BLOOD,URINE NEGATIVE (NEGATIVE); PROTEIN,URINE NEGATIVE (NEGATIVE); UROBILINOGEN,URINE 0.2 (NORMAL) E.U./dL (NORMAL)
[2022-01-11 10:52] LABS: HCG UR QUAL NEGATIVE
--- NOTE | 2022-01-11 11:48 | CT Report ---
PROCEDURE: Abdomen/Pelvis WO INDICATIONS: L flank pain TECHNIQUE: Noncontrast 5 mm thick sections acquired from the diaphragms to the symphysis. 5 mm coronal and sagi ttal reformats were then performed. For radiation dose reduction, the following was used: automated exposure control, adjustment of mA and/or kV according to patient size. COMPARISON: 12/13/2019. FINDINGS: Image quality: Excellent. ABDOMEN: Lung bases: Very subtle groundglass opacity left lower lobe, possibly representing early pneumonia. H eart size is normal. Solid organs: Liver and spleen are normal in size. Gallbladder is unremarkable without calcified ga llstones. Pancreas is normal in contours. No adrenal nodules. Kidneys are normal in size, without hydronephrosis or nephrolithiasis. Peritoneum and bowel: Unenhanced bowel loops demonstrate normal wall thickness and caliber. No free fluid or air. Nodes and vessels: No retroperitoneal or mesenteric adenopathy by size criteria. Aorta and inferior vena cava are normal in caliber. Miscellaneous: No ventral hernias. PELVIS: Genitourinary: Bladder wall thickness is normal. Miscellaneous: No inguinal hernias or adenopathy. Bones: No suspicious bony lesions. No vertebral body compression fractures. IMPRESSION: 1. Very subtle patchy groundglass opacity in the left lower lobe may potentially represent early lex festations of pneumonia. 2. No evidence of renal stones, ureteral stones, or hydronephrosis. 3. No evidence of acute abdominal process. Reviewed by: Gonzalo Austin MD on 01/11/2022 11:46 AM PDT Approved by: Gonzalo Austin MD on 01/11/2022 11:46 AM PDT Station ID: [id number]
--- NOTE | 2022-01-11 11:56 | ED Physician Documentation ---
History of Present Illness - Stated complaint Stated Complaint: LEFT SIDE & BACK PX - Chief complaint Chief Complaint: Resp - History obtained from History obtained from: Patient - Additonal information Additional information: The patient comes to the emergency department chief complaint of left flank pain that been going on for the last 3 to 4 days. She denies any dysuria or hematuria. She states it is just below her left ribs and hurts when she takes a deep breath. No anterior abdominal pain. Occasional nausea. She denies any cough or shortness of breath. The patient states that she has not had any fevers or chills. No right-sided pain. No history of kidney stones that she knows of. The patient states that she is otherwise healthy. No other complaints at this time. Review of Systems Ten Systems: 10 systems reviewed and negative Constitutional: reports: Reviewed and negative Eyes: reports: Reviewed and negative Ears: reports: Reviewed and negative Nose: reports: Reviewed and negative Throat: reports: Reviewed and negative Cardiac: reports: Reviewed and negative Respiratory: reports: Reviewed and negative GI: reports: Abdominal Pain (Left flank), Nausea. denies: Vomiting : reports: Reviewed and negative Skin: reports: Reviewed and negative Musculoskeletal: reports: Reviewed and negative Neurologic: reports: Reviewed and negative Psychiatric: reports: Reviewed and negative Endocrine: reports: Reviewed and negative Immunocompromised: reports: Reviewed and negative PD PAST MEDICAL HISTORY - Past Medical History Cardiovascular: None Respiratory: Pneumonia Endocrine/Autoimmune: None GI: None, Other (colitis) : None HEENT: None Psych: None Musculoskeletal: None, Other (hx of low back pain and sciatica) Derm: None - Past Surgical History Past Surgical History: No - Present Medications Home Medications: Ambulatory Orders Medication Instructions Recorded Confirmed Bupropion HCl [Wellbutrin Xl] 300 mg PO DAILY 01/11/22 01/11/22 Escitalopram [Lexapro] 20 mg PO DAILY 01/11/22 01/11/22 Gabapentin [Neurontin] 300 mg PO TID #12 cap 01/11/22 HYDROcod/ACETAM 5/325 [[place] 5/325] 1 - 2 tablet PO Q6H PRN #14 tablet 01/11/22 predniSONE [Deltasone] 60 mg PO DAILY 5 Days #15 tablet 01/11/22 - Allergies Allergies/Adverse Reactions: Allergies Allergy/AdvReac Type Severity Reaction Status Date / Time amoxicillin [Amoxicillin] Allergy Intermediate Rash Verified 01/11/22 09:27 Penicillins Allergy Intermediate Rash Verified 01/11/22 09:27 - Social History Does the pt smoke?: No Smoking Status: Never smoker Does the pt drink ETOH?: No Does the pt have substance abuse?: No - Immunizations Immunizations are current?: Yes Immunizations: TDAP current <10years PD ED PE NORMAL - Vitals Vital signs reviewed: Yes - General General: Alert and oriented X 3, No acute distress, Well developed/nourished - HEENT HEENT: Atraumatic, PERRL, EOMI, Moist mucous membranes - Neck Neck: Supple, no meningeal sign - Cardiac Cardiac: RRR, No murmur, Strong equal pulses - Respiratory Respiratory: No respiratory distress, Clear bilaterally - Abdomen Abdomen: Soft, Non distended, Other (Left lateral flank tenderness, no rebound or guarding. 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2 (NORMAL) Ur Leukocyte Esterase NEGATIVE Ur Microscopic Review NOT INDICATED Urine Culture Comments NOT INDICATED Urine HCG, Qual NEGATIVE - Rads (name of study) CT abdomen pelvis no contrast Radiology: Final report received, EMP read indepedently, See rad report (Negative) PD MEDICAL DECISION MAKING - ED course Complexity details: reviewed results, re-evaluated patient, considered differential, d/w patient ED course: The patient was treated symptomatically in the emergency department for her pain and nausea. She was also given IV fluids. Her CT scan was completely unremarkable. I did not feel that blood work would be helpful, as the patient had not had any fever or chills, had a negative urinalysis here, and had no findings on CT. I discussed the patient that I am not sure what is causing her pain. We have discussed symptomatic management at home, as well as the need for follow-up if her pain should fail to resolve or significantly improve over the course the next week. Departure - Departure Disposition: 01 Home, Self Care Clinical Impression: Flank pain Condition: Stable Instructions: ED Flank Pain Uncertain Cause Prescriptions: predniSONE [Deltasone] 60 mg PO DAILY 5 Days #15 tablet Gabapentin [Neurontin] 300 mg PO TID #12 cap HYDROcod/ACETAM 5/325 [[place] 5/325] 1 - 2 tablet PO Q6H PRN #14 tablet PRN Reason: Pain Comments: Your urinalysis and CT scan are completely normal. You do not have fevers to raise concern for a serious infection anywhere. Additionally, the CT scan is a fairly thorough test that will show inflammation within the abdominal cavity, any pus collections or other fluid collections, such as blood or a cyst, and will also show things like tumors. Stones are also readily visible on CT scan. None of these were found. Your urinalysis did not indicate any infection, and there is no blood in your urine to indicate a very recently passed kidney stone. At this point, blood work will not be helpful, as this would only prompt us toward further imaging with CT. Most likely, your pain is from nerve irritation or inflammation outside of the abdominal cavity. If you get to the end of the week and you have noticed no improvement in your symptoms, please call your primary doctor's office to schedule a follow-up appointment for reevaluation. Your prescriptions have been electronically transmitted to [facility] in [place].
[2022-01-11 12:43] VITALS: BP 120/75
== END 2022-01-11 12:44 | disposition home or self-care (01) ==
LOC: ED 09:23
DX: R10.9 Unspecified abdominal pain (principal)
CPT/HCPCS: 74176; 81003; 81025; 96374; 96375; 99283; 99284; J1170; 81001; 87086

== ENCOUNTER 2022-04-21 13:38 | Outpatient (CLI) | payer MEDICAID ==
[2022-04-21 20:28] LABS: BASOPHILS % (AUTO) 0.5 %; EOSINOPHILS # (AUTO) 0.1 10^3/uL (0.0-0.7); HCT - HEMATOCRIT 40.1 % (37.0-47.0); HGB - HEMOGLOBIN 13.3 g/dL (12.0-16.0); LYMPHOCYTES # (AUTO) 2.4 10^3/uL (1.5-3.5); LYMPHOCYTES % (AUTO) 29.7 %; MEAN CORPUSCULAR HEMOGLOBIN 29.4 pg (27.0-31.0); MEAN CORPUSCULAR HGB CONC 33.2 g/dL (32.0-36.0); MEAN CORPUSCULAR VOLUME 88.5 fL (81.0-99.0); MEAN PLATELET VOLUME 9.9 fL (7.9-10.8); MONOCYTES # (AUTO) 0.4 10^3/uL (0.0-1.0); MONOCYTES % (AUTO) 4.9 %; NEUTROPHILS # (AUTO) 5.2 10^3/uL (1.5-6.6); NEUTROPHILS % (AUTO) 63.5 %; PLT - PLATELET COUNT 247 10^3/uL (130-450); RED BLOOD COUNT 4.53 10^6/uL (4.20-5.40); RED CELL DISTRIBUTION WIDTH 13.2 % (12.0-15.0); WHITE BLOOD COUNT 8.2 x10^3/uL (4.8-10.8)
[2022-04-21 20:34] LABS: ALBUMIN 4.3 g/dL (3.2-5.5); ALBUMIN/GLOBULIN RATIO 1.3 (1.0-2.2); ALKALINE PHOSPHATASE 42 IU/L (42-121); ALT ALANINE AMINOTRANSFERASE 17 IU/L (10-60); AST ASPARTATE AMINOTRANSFERASE 20 IU/L (10-42); BILIRUBIN,TOTAL 0.5 mg/dL (0.2-1.0); BUN - BLOOD UREA NITROGEN 15 mg/dL (6-20); CALCIUM 9.3 mg/dL (8.5-10.3); CARBON DIOXIDE - CO2 27 mmol/L (21-32); CHLORIDE 101 mmol/L (101-111); CHOL/HDL RATIO 5.7 (<4.4); CHOLESTEROL 289 mg/dL; CREATININE 0.8 mg/dL (0.4-1.0); GFR - MDRD 82 (>89); GLUCOSE 142 mg/dL (70-100); HDL CHOLESTEROL 51 mg/dL; LDL CHOLESTEROL,CALCULATED 165 mg/dL; LDL/HDL RATIO 3.2 (<4.4); POTASSIUM 3.5 mmol/L (3.5-5.0); SODIUM 135 mmol/L (135-145); TOTAL PROTEIN 7.6 g/dL (6.7-8.2); TRIGLYCERIDES 365 mg/dL; VLDL CHOLESTEROL 73 mg/dL
[2022-04-21 20:48] LABS: THYROID STIMULATING HORMONE 1.23 uIU/mL (0.34-5.60)
[2022-04-21 21:19] LABS: ESTIMATED AVERAGE GLUCOSE 100 mg/dL (70-100); HEMOGLOBIN A1c% 5.1 % (4.27-6.07)
== END 2022-04-21 13:39 | disposition home or self-care (01) ==
LOC: LAB.S 13:38
PROVIDERS: ATTEND Physician Assistant
DX: E78.5 Hyperlipidemia, unspecified (principal); R73.9 Hyperglycemia, unspecified; Z13.29 Encounter for screening for other suspected endocrine disorder; K29.70 Gastritis, unspecified, without bleeding
CPT/HCPCS: 36415; 80053; 80061; 83036; 83721; 84443; 85025

== ENCOUNTER 2022-05-28 08:00 | Outpatient (CLI) | payer MEDICAID | END 2022-05-28 23:59 | disposition home or self-care (01) | LOC: LAB.S 08:00 | PROVIDERS: ATTEND Physician Assistant Medical | DX: R07.0 Pain in throat (principal) | CPT/HCPCS: 81599; 87070; 87077 ==

== ENCOUNTER 2022-05-31 11:00 | Outpatient (CLI) | payer MEDICAID | END 2022-05-31 23:59 | disposition home or self-care (01) | LOC: LAB.S 11:00 | PROVIDERS: ATTEND Physician Assistant Medical | DX: Z20.2 Contact with and (suspected) exposure to infections with a predominantly sexual mode of transmission (principal) | CPT/HCPCS: 81599; 87491; 87591 ==

== ENCOUNTER 2022-05-31 11:00 | Outpatient (CLI) | payer MEDICAID ==
[2022-06-01 07:10] LABS: RPR Non Reactive (Non Reactive)
[2022-06-01 10:09] LABS: HCV AB <0.1 s/co ratio (0.0-0.9)
[2022-06-02 00:07] LABS: HIV SCREEN 4TH GENERATION Non Reactive (Non Reactive)
== END 2022-05-31 11:01 | disposition home or self-care (01) ==
LOC: LAB.S 11:00
PROVIDERS: ATTEND Physician Assistant
DX: R07.0 Pain in throat (principal); Z20.2 Contact with and (suspected) exposure to infections with a predominantly sexual mode of transmission
CPT/HCPCS: 36415; 86592; 86803; 87389

== ENCOUNTER → 2022-09-30 11:29 | Outpatient (CLI) | payer MEDICAID ==
--- NOTE | 2022-09-30 16:10 | XRAY Report ---
PROCEDURE: Chest 2 View X-Ray INDICATIONS: PRODUCTIVE COUGH TECHNIQUE: 2 views of the chest were acquired. COMPARISON: None. FINDINGS: Surgical changes and devices: None. Lungs and pleura: No pleural effusions or pneumothorax. Lungs are clear. Mediastinum: Mediastinal contours are normal. Heart size is normal. Bones and chest wall: No suspicious bony abnormalities. Soft tissues appear unremarkable. IMPRESSION: No acute pulmonary process. Reviewed by: Sarita Swanson MD on 09/30/2022 4:09 PM [facility] Approved by: Sarita Swanson MD on 09/30/2022 4:09 PM [facility] Station ID: [id number]
== END | disposition home or self-care (01) ==
LOC: DI.S 11:29
PROVIDERS: ATTEND Physician Assistant
DX: R05.8 Other specified cough (principal)

== ENCOUNTER 2023-01-05 07:00 | Outpatient (CLI) | payer MEDICAID ==
--- NOTE | 2023-01-05 12:02 | XRAY Report ---
PROCEDURE: Knee 3 View RT INDICATIONS: RIGHT KNEE SPRAIN TECHNIQUE: 3 views of the right knee(s) were acquired. COMPARISON: Right knee radiographs 12/02/2015. FINDINGS: Bones: No fractures or dislocations. No suspicious bony lesions. Soft tissues: No significant knee joint effusion. No suspicious soft tissue calcifications or masses . IMPRESSION: No significant osseous abnormality. Reviewed by: Luigi Singleton MD on 01/05/2023 12:01 PM PDT Approved by: Luigi Singleton MD on 01/05/2023 12:01 PM PDT Station ID: [id number]
== END 2023-01-05 23:59 | disposition home or self-care (01) ==
LOC: DI.S 07:00
PROVIDERS: ATTEND Emergency Medicine
DX: S83.421A Sprain of lateral collateral ligament of right knee, initial encounter (principal)

== ENCOUNTER 2023-05-08 13:04 | Outpatient (CLI) | payer MEDICAID ==
[2023-05-08 14:55] LABS: BASOPHILS # (AUTO) 0.1 10^3/uL (0.0-0.1); BASOPHILS % (AUTO) 0.8 %; EOSINOPHILS # (AUTO) 0.1 10^3/uL (0.0-0.7); EOSINOPHILS % (AUTO) 1.5 %; HCT - HEMATOCRIT 44.7 % (37.0-47.0); HGB - HEMOGLOBIN 15.2 g/dL (12.0-16.0); LYMPHOCYTES # (AUTO) 2.3 10^3/uL (1.5-3.5); LYMPHOCYTES % (AUTO) 31.6 %; MEAN CORPUSCULAR VOLUME 88.3 fL (81.0-99.0); MEAN PLATELET VOLUME 9.9 fL (7.9-10.8); MONOCYTES # (AUTO) 0.6 10^3/uL (0.0-1.0); MONOCYTES % (AUTO) 8.3 %; NEUTROPHILS # (AUTO) 4.2 10^3/uL (1.5-6.6); NEUTROPHILS % (AUTO) 57.4 %; PLT - PLATELET COUNT 310 10^3/uL (130-450); RED BLOOD COUNT 5.06 10^6/uL (4.20-5.40); RED CELL DISTRIBUTION WIDTH 12.9 % (12.0-15.0); WHITE BLOOD COUNT 7.3 x10^3/uL (4.8-10.8)
[2023-05-08 15:11] LABS: ALBUMIN 4.9 g/dL (3.2-5.5); ALBUMIN/GLOBULIN RATIO 1.6 (1.0-2.2); ALKALINE PHOSPHATASE 62 IU/L (42-121); ALT ALANINE AMINOTRANSFERASE 17 IU/L (10-60); AST ASPARTATE AMINOTRANSFERASE 17 IU/L (10-42); BILIRUBIN,TOTAL 0.5 mg/dL (0.2-1.0); BUN - BLOOD UREA NITROGEN 14 mg/dL (6-20); CALCIUM 9.9 mg/dL (8.5-10.3); CARBON DIOXIDE - CO2 24 mmol/L (21-32); CHLORIDE 103 mmol/L (101-111); CHOL/HDL RATIO 6.6 (<4.4); CHOLESTEROL 290 mg/dL; CREATININE 0.7 mg/dL (0.6-1.3); GFR - MDRD 95 (>89); GLUCOSE 101 mg/dL (74-104); HDL CHOLESTEROL 44 mg/dL; LDL CHOLESTEROL,CALCULATED 169 mg/dL; LDL/HDL RATIO 3.8 (<4.4); POTASSIUM 3.9 mmol/L (3.5-4.5); SODIUM 135 mmol/L (135-145); TRIGLYCERIDES 383 mg/dL (48-352); VLDL CHOLESTEROL 77 mg/dL
[2023-05-08 15:45] LABS: HCG,QUALITATIVE BLOOD POSITIVE
[2023-05-08 15:53] LABS: THYROID STIMULATING HORMONE 1.63 uIU/mL (0.34-5.60)
[2023-05-08 22:21] LABS: ESTIMATED AVERAGE GLUCOSE 105 mg/dL (70-100); HEMOGLOBIN A1c% 5.3 % (4.27-6.07)
== END 2023-05-08 13:05 | disposition home or self-care (01) ==
LOC: LAB.S 13:04
PROVIDERS: ATTEND Physician Assistant Medical
DX: R73.9 Hyperglycemia, unspecified (principal); Z33.1 Pregnant state, incidental
CPT/HCPCS: 36415; 80053; 80061; 83036; 83721; 84443; 84702; 84703; 85025

== ENCOUNTER 2023-05-09 10:59 | Emergency (ER) | payer MEDICAID ==
[2023-05-09 11:21] VITALS: BP 138/82; O2SAT 99
[2023-05-09 11:40] LABS: BILIRUBIN,URINE NEGATIVE (NEGATIVE); GLUCOSE, URINE (UA) NEGATIVE (NEGATIVE); KETONES,URINE (UA) TRACE mg/dL (NEGATIVE); LEUKOCYTE ESTERASE, URINE NEGATIVE (NEGATIVE); NITRITE,URINE NEGATIVE (NEGATIVE); OCCULT BLOOD,URINE NEGATIVE (NEGATIVE); PROTEIN,URINE NEGATIVE (NEGATIVE); UROBILINOGEN,URINE 0.2 (NORMAL) E.U./dL (NORMAL)
[2023-05-09 11:48] LABS: CLARITY,URINE CLEAR (CLEAR)
--- NOTE | 2023-05-09 12:22 | ED Physician Documentation ---
PD HPI FEMALE - Stated complaint Stated Complaint: - Chief complaint Chief Complaint: Abd Pain - History obtained from History obtained from: Patient - Additional information Additional information: Patient is a 33-year-old, presenting for evaluation of pelvic cramping in the setting of a positive test. Patient went to the walk-in clinic yesterday and had labs done. Her hCG level was low and she was directed to the emergency department for evaluation. She denies vaginal bleeding. Reports the pain is more on the left side. Has required RhoGAM in the past. Was given a re ferral for OB in [place] but has not established care yet.Patient reports having recent abnormal and irregular bleeding. Her last episode of vaginal bleeding was 5 weeks ago. She states that prior to this her menstrual cycles were regular. Review of Systems Constitutional: denies: Fever Respiratory: denies: Dyspnea GI: denies: Abdominal Pain : denies: Dysuria, Vaginal bleeding Neurologic: denies: Syncope PD PAST MEDICAL HISTORY - Past Medical History Cardiovascular: None Respiratory: Pneumonia Endocrine/Autoimmune: None GI: None, Other (colitis) : None HEENT: None Psych: None Musculoskeletal: None, Other (hx of low back pain and sciatica) Derm: None - Past Surgical History Past Surgical History: No - Present Medications Home Medications: Ambulatory Orders Medication Instructions Recorded Confirmed Escitalopram [Lexapro] 20 mg PO DAILY 01/11/22 01/11/22 Gabapentin [Neurontin] 300 mg PO TID #12 cap 01/11/22 HYDROcod/ACETAM 5/325 [[place] 5/325] 1 - 2 tablet PO Q6H PRN #14 tablet 01/11/22 Ondansetron Odt [Zofran] 4 mg TL Q6H PRN #10 tablet 01/11/22 buPROPion HCL [Wellbutrin Xl] 300 mg PO DAILY 01/11/22 01/11/22 predniSONE [Deltasone] 60 mg PO DAILY 5 Days #15 tablet 01/11/22 Ondansetron Odt [Zofran] 4 mg TL Q6H PRN #10 tablet 03/24/22 - Allergies Allergies/Adverse Reactions: Allergies Allergy/AdvReac Type Severity Reaction Status Date / Time amoxicillin [Amoxicillin] Allergy Intermediate Rash Verified 03/24/22 15:45 Penicillins Allergy Intermediate Rash Verified 03/24/22 15:45 - Social History Does the pt smoke?: No Smoking Status: Never smoker Does the pt drink ETOH?: No Does the pt have substance abuse?: No - Immunizations Immunizations are current?: Yes Immunizations: TDAP current <10years PD ED PE NORMAL - General General: Alert and oriented X 3, No acute distress, Well developed/nourished - HEENT HEENT: Atraumatic, Moist mucous membranes, Pharynx benign - Neck Neck: Supple, no meningeal sign - Cardiac Cardiac: RRR, No murmur - Respiratory Respiratory: No respiratory distress, Clear bilaterally - Abdomen Abdomen: Normal bowel sounds, Soft, Non tender, Non distended - Derm Derm: Warm and dry - Neuro Neuro: Normal speech Results - Vitals Vitals: Vital Signs - 24 hr 05/09/23 11:12 Temperature 36.2 C L Heart Rate 79 Respiratory 18 Rate Blood Pressure 138/82 H O2 Saturation 99 Oxygen O2 Source Room air - Labs Labs: Laboratory Tests 05/09/23 05/09/23 05/09/23 11:20 12:20 12:20 WBC 7.5 RBC 4.74 Hgb 14.2 Hct 42.0 MCV 88.6 MCH 30.0 MCHC 33.8 RDW 12.7 Plt Count 263 MPV 9.4 Neut # (Auto) 4.7 Lymph # (Auto) 2.2 Harris # (Auto) 0.5 Eos # (Auto) 0.1 Baso # (Auto) 0.1 Absolute Nucleated RBC 0.00 Nucleated RBC % 0.0 Sodium 135 Potassium 3.7 Chloride 106 Carbon Dioxide 23 Anion Gap 6.0 BUN 15 Creatinine 0.8 Estimated GFR (MDRD) 82 L Glucose 117 H Calcium 9.4 Total Bilirubin 0.3 AST 15 ALT 14 Alkaline Phosphatase 57 Total Protein 7.2 Albumin 4.5 Globulin 2.7 Albumin/Globulin Ratio 1.7 Lipase 42 Beta HCG, Quant 260.6 Urine Color YELLOW Urine Clarity CLEAR Urine pH 6.0 Ur Specific [place] 1.020 Urine Protein NEGATIVE Urine Glucose (UA) NEGATIVE Urine Ketones TRACE Urine Occult Blood NEGATIVE Urine Nitrite NEGATIVE Urine Bilirubin NEGATIVE Urine Urobilinogen 0.2 (NORMAL) Ur Leukocyte Esterase NEGATIVE Ur Microscopic Review NOT INDICATED Urine Culture Comments NOT INDICATED Blood Type 05/09/23 12:20 WBC RBC Hgb Hct MCV MCH MCHC RDW Plt Count MPV Neut # (Auto) Lymph # (Auto) Harris # (Auto) Eos # (Auto) Baso # (Auto) Absolute Nucleated RBC Nucleated RBC % Sodium Potassium Chloride Carbon Dioxide Anion Gap BUN Creatinine Estimated GFR (MDRD) Glucose Calcium Total Bilirubin AST ALT Alkaline Phosphatase Total Protein Albumin Globulin Albumin/Globulin Ratio Lipase Beta HCG, Quant Urine Color Urine Clarity Urine pH Ur Specific [place] Urine Protein Urine Glucose (UA) Urine Ketones Urine Occult Blood Urine Nitrite Urine Bilirubin Urine Urobilinogen Ur Leukocyte Esterase Ur Microscopic Review Urine Culture Comments Blood Type A NEGATIVE PD Medical Decision Making - ED course Complexity details: reviewed results, re-evaluated patient, d/w patient ED course: Patient is a 33-year-old presenting for evaluation of cramping in . She is unsure of how many weeks she may be along. She was seen at the walk-in clinic and had an hCG level that was 195. She reports continued cramping today. Reports most of the discomfort she has felt is on the left side. Abdominal exam is benign with no pain elicited. Ultrasound was obtained which showed no confirmatory IUP. She does have a Finding of a possible hemorrhagic cyst on the right. She does not have any tenderness to suggest ruptured ectopic.Repeat hCG level is 260. Patient's blood type is A-. Discussed with on-call OB, Dr. Randhawa. Patient does not require RhoGAM at this time but we could offer it. I did offer to the patient but she declines as she also does not want to receive it if not necessary. Patient understands that we are not able to determine the location of her and thus were not able to rule out an ectopic . She understands the importance of close follow-up with primary care or [employer]OR for repeat hCG level and ultrasound as well as advised on strict return precautions for any worsening symptoms. Departure - Departure Disposition: 01 Home, Self Care Clinical Impression: of unknown anatomic location Condition: Stable Instructions: ED Abdominal Pain Rule Out Ectopic Follow-Up: Kori Pickens PA [Primary Care Provider] - Within 3 Days Comments: Your beta hCG level today is 260 (195 yesterday). At this time we are unable to locate the on your ultrasound. This means we are unsure if the is located inside the uterus or elsewhere. It is also unclear whether your symptoms today are indicative of a miscarriage. You do need close follow- up with a primary care provider or [employer] E[employer] PROFESSOR for repeat lab and ultrasound. Please return to the emergency department with any worsening symptoms. You do have a cyst on the right ovary. This does not appear to be the location of your pain today but is something for you to be aware of. Your blood type is A-. You do not need RhoGAM today as you are in your first trimester. IMPRESSION: of unknown location. No intrauterine gestational sac. Possible complicated (may be hemorrhagic) cyst in the right ovary. Imaging, laboratory, clinical follow-up are recommended. Forms: PCP List Discharge Date/Time: 05/09/23 13:56
[2023-05-09 12:31] LABS: BASOPHILS # (AUTO) 0.1 10^3/uL (0.0-0.1); BASOPHILS % (AUTO) 0.8 %; EOSINOPHILS # (AUTO) 0.1 10^3/uL (0.0-0.7); EOSINOPHILS % (AUTO) 1.5 %; HGB - HEMOGLOBIN 14.2 g/dL (12.0-16.0); LYMPHOCYTES # (AUTO) 2.2 10^3/uL (1.5-3.5); MEAN CORPUSCULAR HGB CONC 33.8 g/dL (32.0-36.0); MEAN CORPUSCULAR VOLUME 88.6 fL (81.0-99.0); MEAN PLATELET VOLUME 9.4 fL (7.9-10.8); MONOCYTES # (AUTO) 0.5 10^3/uL (0.0-1.0); MONOCYTES % (AUTO) 6.1 %; NEUTROPHILS # (AUTO) 4.7 10^3/uL (1.5-6.6); NEUTROPHILS % (AUTO) 62.2 %; PLT - PLATELET COUNT 263 10^3/uL (130-450); RED BLOOD COUNT 4.74 10^6/uL (4.20-5.40); RED CELL DISTRIBUTION WIDTH 12.7 % (12.0-15.0); WHITE BLOOD COUNT 7.5 x10^3/uL (4.8-10.8)
--- NOTE | 2023-05-09 12:32 | Ultrasound Report ---
PROCEDURE: OB First Trimester w/TV INDICATIONS: pelvic pain, 6 weeks preg OUTSIDE/PRIOR DATING DATA: Last menstrual period (LMP): Unknown. TECHNIQUE: Real-time scanning was performed of the fetus and maternal pelvic organs, with image documentation. Endovaginal scanning was also performed to better visualize the fetus and maternal ovaries. COMPARISON: None. FINDINGS: No intrauterine gestational sac is seen. No pathologic free fluid. Possible complicated cyst in the r ight ovary may be a hemorrhagic cyst, measuring about 3 cm. IMPRESSION: of unknown location. No intrauterine gestational sac. Possible complicated (may be hemorrhagic) cyst in the right ovary. Imaging, laboratory, clinical follow-up are recommended. Reviewed by: Jeferson Guzman MD on 05/09/2023 12:31 PM PDT Approved by: Jeferson Guzman MD on 05/09/2023 12:31 PM PDT Station ID: [id number]
[2023-05-09 13:02] LABS: ALBUMIN 4.5 g/dL (3.2-5.5); ALBUMIN/GLOBULIN RATIO 1.7 (1.0-2.2); BILIRUBIN,TOTAL 0.3 mg/dL (0.2-1.0); CALCIUM 9.4 mg/dL (8.5-10.3); CREATININE 0.8 mg/dL (0.6-1.3); POTASSIUM 3.7 mmol/L (3.5-4.5); TOTAL PROTEIN 7.2 g/dL (6.4-8.9)
== END 2023-05-09 13:56 | disposition home or self-care (01) ==
LOC: ED 10:59
DX: O36.80X0 Pregnancy with inconclusive fetal viability, not applicable or unspecified (principal); Z3A.01 Less than 8 weeks gestation of pregnancy
CPT/HCPCS: 36415; 80053; 81001; 81003; 83690; 84702; 85025; 86900; 86901; 87086; 99283; 99284

== ENCOUNTER 2023-06-07 12:48 | Outpatient (CLI) | payer MEDICAID ==
[2023-06-07 14:44] LABS: BASOPHILS % (AUTO) 0.5 %; EOSINOPHILS # (AUTO) 0.1 10^3/uL (0.0-0.7); EOSINOPHILS % (AUTO) 1.4 %; HCT - HEMATOCRIT 44.1 % (37.0-47.0); LYMPHOCYTES # (AUTO) 2.3 10^3/uL (1.5-3.5); LYMPHOCYTES % (AUTO) 29.1 %; MEAN CORPUSCULAR HEMOGLOBIN 28.9 pg (27.0-31.0); MEAN CORPUSCULAR HGB CONC 31.7 g/dL (32.0-36.0); MEAN CORPUSCULAR VOLUME 91.1 fL (81.0-99.0); MEAN PLATELET VOLUME 9.8 fL (7.9-10.8); MONOCYTES # (AUTO) 0.4 10^3/uL (0.0-1.0); MONOCYTES % (AUTO) 5.7 %; NEUTROPHILS # (AUTO) 4.9 10^3/uL (1.5-6.6); PLT - PLATELET COUNT 259 10^3/uL (130-450); RED BLOOD COUNT 4.84 10^6/uL (4.20-5.40); RED CELL DISTRIBUTION WIDTH 12.2 % (12.0-15.0); WHITE BLOOD COUNT 7.7 x10^3/uL (4.8-10.8)
[2023-06-07 20:29] LABS: ALBUMIN 4.5 g/dL (3.2-5.5); ALBUMIN/GLOBULIN RATIO 1.7 (1.0-2.2); BILIRUBIN,TOTAL 0.3 mg/dL (0.2-1.0); CALCIUM 9.4 mg/dL (8.5-10.3); CREATININE 0.6 mg/dL (0.6-1.3); POTASSIUM 3.8 mmol/L (3.5-4.5); TOTAL PROTEIN 7.2 g/dL (6.4-8.9)
[2023-06-07 20:38] LABS: THYROID STIMULATING HORMONE 1.16 uIU/mL (0.34-5.60)
[2023-06-07 20:45] LABS: FERRITIN 22.3 ng/mL (11.0-306.8)
== END 2023-06-07 12:49 | disposition home or self-care (01) ==
LOC: LAB.S 12:48
PROVIDERS: ATTEND Registered Nurse
DX: R22.30 Localized swelling, mass and lump, unspecified upper limb (principal); E78.1 Pure hyperglyceridemia; R10.11 Right upper quadrant pain; Z33.1 Pregnant state, incidental
CPT/HCPCS: 36415; 80053; 82306; 82607; 82728; 83540; 83690; 84443; 84466; 84478; 85025

== ENCOUNTER 2023-08-16 12:56 | Emergency (ER) | payer MEDICAID ==
[2023-08-16 13:11] VITALS: O2SAT 99
[2023-08-16 13:16] LABS: BASOPHILS % (AUTO) 0.5 %; EOSINOPHILS # (AUTO) 0.1 10^3/uL (0.0-0.7); EOSINOPHILS % (AUTO) 1.4 %; HCT - HEMATOCRIT 40.6 % (37.0-47.0); HGB - HEMOGLOBIN 13.5 g/dL (12.0-16.0); LYMPHOCYTES # (AUTO) 2.1 10^3/uL (1.5-3.5); MEAN CORPUSCULAR HEMOGLOBIN 29.3 pg (27.0-31.0); MEAN CORPUSCULAR HGB CONC 33.3 g/dL (32.0-36.0); MEAN CORPUSCULAR VOLUME 88.1 fL (81.0-99.0); MEAN PLATELET VOLUME 9.2 fL (7.9-10.8); MONOCYTES # (AUTO) 0.4 10^3/uL (0.0-1.0); NEUTROPHILS # (AUTO) 5.9 10^3/uL (1.5-6.6); NEUTROPHILS % (AUTO) 68.6 %; PLT - PLATELET COUNT 245 10^3/uL (130-450); RED BLOOD COUNT 4.61 10^6/uL (4.20-5.40); RED CELL DISTRIBUTION WIDTH 13.3 % (12.0-15.0); WHITE BLOOD COUNT 8.6 x10^3/uL (4.8-10.8)
[2023-08-16 13:37] LABS: ALBUMIN 4.1 g/dL (3.2-5.5); ALBUMIN/GLOBULIN RATIO 1.4 (1.0-2.2); BILIRUBIN,TOTAL 0.3 mg/dL (0.2-1.0); CALCIUM 9.2 mg/dL (8.5-10.3); CREATININE 0.5 mg/dL (0.6-1.3); POTASSIUM 3.6 mmol/L (3.5-4.5); TOTAL PROTEIN 7.1 g/dL (6.4-8.9)
[2023-08-16 14:37] LABS: BILIRUBIN,URINE NEGATIVE (NEGATIVE); CLARITY,URINE CLEAR (CLEAR); GLUCOSE, URINE (UA) NEGATIVE (NEGATIVE); KETONES,URINE (UA) 15 mg/dL (NEGATIVE); LEUKOCYTE ESTERASE, URINE NEGATIVE (NEGATIVE); NITRITE,URINE NEGATIVE (NEGATIVE); OCCULT BLOOD,URINE NEGATIVE (NEGATIVE); PH,URINE 5.5 PH (5.0-7.5); PROTEIN,URINE NEGATIVE (NEGATIVE); UROBILINOGEN,URINE 0.2 (NORMAL) E.U./dL (NORMAL)
--- NOTE | 2023-08-16 15:25 | ED Physician Documentation ---
History of Present Illness - Stated complaint Stated Complaint: ABD PX - Chief complaint Chief Complaint: Abd Pain - Additonal information Additional information: 33-year-old female G4, P2 presents to the emergency department with right-sided abdominal pain. Patient reports that last night she started having right-sided abdominal pain that started in her right upper quadrant and wraps around her entire lower belly to her left lower quadrant. She feels like she has been having contractions and also states that she is concerned she is not feeling her baby is active as he normally is. She reports that she had history of preeclampsia with one of her pregnancies and 2 previous miscarriages at 6 and 8 weeks. She denies any dysuria no fevers or chills she reports that she is starting to feel some new dizziness and has been having some nausea and vomiting at home as well. No vaginal discharge no vaginal bleeding. PD PAST MEDICAL HISTORY - Past Medical History Past Medical History: Yes Cardiovascular: None Respiratory: Pneumonia Endocrine/Autoimmune: None GI: None, Other : None HEENT: None Psych: Depression, Anxiety Musculoskeletal: None, Other Derm: None - Past Surgical History Past Surgical History: No - Present Medications Home Medications: Ambulatory Orders Medication Instructions Recorded Confirmed Escitalopram [Lexapro] 20 mg PO DAILY 01/11/22 01/11/22 Gabapentin [Neurontin] 300 mg PO TID #12 cap 01/11/22 HYDROcod/ACETAM 5/325 [[place] 5/325] 1 - 2 tablet PO Q6H PRN #14 tablet 01/11/22 Ondansetron Odt [Zofran] 4 mg TL Q6H PRN #10 tablet 01/11/22 buPROPion HCL [Wellbutrin Xl] 300 mg PO DAILY 01/11/22 01/11/22 predniSONE [Deltasone] 60 mg PO DAILY 5 Days #15 tablet 01/11/22 Ondansetron Odt [Zofran] 4 mg TL Q6H PRN #10 tablet 03/24/22 - Allergies Allergies/Adverse Reactions: Allergies Allergy/AdvReac Type Severity Reaction Status Date / Time amoxicillin [Amoxicillin] Allergy Intermediate Rash Verified 08/16/23 12:59 Penicillins Allergy Intermediate Rash Verified 08/16/23 12:59 clindamycin Allergy Rash Verified 08/16/23 12:59 - Social History Does the pt smoke?: No Smoking Status: Never smoker Does the pt drink ETOH?: No Does the pt have substance abuse?: No - Immunizations Immunizations are current?: Yes Immunizations: TDAP current <10years PD ED PE NORMAL - Vitals Vital signs reviewed: Yes - General General: Alert and oriented X 3, No acute distress, Well developed/nourished - HEENT HEENT: Atraumatic - Cardiac Cardiac: RRR, No gallop, Strong equal pulses - Respiratory Respiratory: No respiratory distress, Clear bilaterally - Abdomen Abdomen: Other (RUQ and RLQ visible tenderness with palpation. ) - Derm Derm: Normal color - Extremities Extremities: No edema Results - Vitals Vitals: Vital Signs - 24 hr 08/16/23 08/16/23 13:00 17:18 Temperature 36.8 C 36.6 C Heart Rate 100 89 Respiratory 16 18 Rate Blood Pressure 142/72 H 124/84 H O2 Saturation 99 99 Oxygen O2 Source Room air - Labs Labs: Laboratory Tests 08/16/23 08/16/23 08/16/23 13:08 13:11 13:11 WBC 8.6 RBC 4.61 Hgb 13.5 Hct 40.6 MCV 88.1 MCH 29.3 MCHC 33.3 RDW 13.3 Plt Count 245 MPV 9.2 Neut # (Auto) 5.9 Lymph # (Auto) 2.1 [place] # (Auto) 0.4 Eos # (Auto) 0.1 Baso # (Auto) 0.0 Absolute Nucleated RBC 0.00 Nucleated RBC % 0.0 Sodium 135 Potassium 3.6 Chloride 103 Carbon Dioxide 24 Anion Gap 8.0 BUN 9 Creatinine 0.5 L Estimated GFR (MDRD) 140 Glucose 113 H Calcium 9.2 Total Bilirubin 0.3 AST 12 ALT 11 Alkaline Phosphatase 43 Total Protein 7.1 Albumin 4.1 Globulin 3.0 Albumin/Globulin Ratio 1.4 Lipase 34 Urine Color YELLOW Urine Clarity CLEAR Urine pH 5.5 Ur Specific [place] 1.025 Urine Protein NEGATIVE Urine Glucose (UA) NEGATIVE Urine Ketones 15 H Urine Occult Blood NEGATIVE Urine Nitrite NEGATIVE Urine Bilirubin NEGATIVE Urine Urobilinogen 0.2 (NORMAL) Ur Leukocyte Esterase NEGATIVE Ur Microscopic Review NOT INDICATED Urine Culture Comments NOT INDICATED - Rads (name of study) OB US Relevant Findings:: Final report received, EMP independent interpretation of test (Ultrasound reveals single living intrauterine gestation, 148 bpm. No placenta previa) PD Medical Decision Making - ED course ED course: 33-year-old female 18 weeks presents to the emergency department for right upper and right lower quadrant pain. She has no hematuria no severe right flank pain make me less concerned about a possible pyelonephritis, UTI, renal calculi. She has no leukocytosis she has had no fever make me less concerned about a possible appendicitis CBC complete, no leukocytosis no anemia, chemistry reveals glucose 113, no electrolyte abnormalities. Urinalysis negative for leukocytes or nitrates positive for ketones most likely due to patient's nausea vomiting that she was experiencing last night. Not concerned about a UTI. Ultrasound is complete which reveals no acute abnormalities or findings fetus is viable heart rate 148 living. She has no vaginal discharge no vaginal bleeding make me less concern about possible miscarriage. After reevaluating the patient informing her of her ultrasound findings patient says that she feels significantly better she is no longer nauseous she is able to keep a sandwich and fluids down without any difficulty and denies any right lower quadrant pain. Patient said that she want ed to go home at this time requesting no further workup and said that she is planning on following up with her [employer] tomorrow and has another ultrasound tomorrow at her [employer]'s office. She was given strict return precautions all questions answered and says that she feels safe to discharge at this time. Originally she was slightly hypertensive when she first arrived to the emergency department but her blood pressure has now returned to normotensive. Departure - Departure Disposition: 01 Home, Self Care Clinical Impression: Abdominal pain during Qualifiers: Trimester: second trimester Qualified Code(s): O26.892 - Other specified pregna ncy related conditions, second trimester Instructions: Abdominal Pain Comments: Thank you for trusting us with your care. We have completed an abdominal ultrasound and see that your baby is moving and his heart is beating adequately. As we discussed there were no significant findings on your labs or your urine. At this time I believe that you are safe for discharge but please have a very low threshold to come back to the emergency department if your abdominal pain/cramping comes back or if you start to develop any vaginal discharge or ble eding, persistent nausea and vomiting, or any other concerning symptoms. Please follow-up with your [employer] tomorrow for further evaluation of this and continue to attempt to stay well-hydrated with eating a healthy well-balanced diet. Forms: PCP List Discharge Date/Time: 08/16/23 17:42
--- NOTE | 2023-08-16 16:42 | Ultrasound Report ---
PROCEDURE: OB Limited INDICATIONS: Right abdominal pain OUTSIDE/PRIOR DATING DATA: First dating scan (date and location): 08/16/2023. Estimated date of delivery (NICHELLE) from first dating scan: 01/12/2024. TECHNIQUE: Real-time scanning was performed of the fetus, with image documentation. Endovaginal scanning: No COMPARISON: None. FINDINGS: A single living intrauterine gestation is present. Presentation: Breech Placenta: Placental position is anterior, without previa. Amniotic fluid index: 14 point cm, 57th percentile for gestational age. heart rate: 148 beats per minutes. Maternal cervical canal: 4.5 cm long; normal length is 2.5 cm or more. Estimated gestational age from initial scan: 18 weeks 5 days. Survey of anatomy includes normal chest/diaphragm, stomach/abdomen, bilateral renal regions, an d urinary bladder/pelvis. IMPRESSION: Single living intrauterine gestation. Reviewed by: Kaushal Styles MD on 08/16/2023 4:40 PM PST Approved by: Kaushal Styles MD on 08/16/2023 4:40 PM PST Station ID: [id number]
[2023-08-16 17:26] VITALS: BP 124/84
== END 2023-08-16 17:42 | disposition home or self-care (01) ==
LOC: ED 12:56
DX: O26.892 Other specified pregnancy related conditions, second trimester (principal); Z3A.18 18 weeks gestation of pregnancy
CPT/HCPCS: 36415; 80053; 81001; 81003; 83690; 85025; 87086; 99283; 99284

== ENCOUNTER 2023-09-15 07:00 | Outpatient (CLI) | payer MEDICAID ==
--- NOTE | 2023-09-15 14:37 | XRAY Report ---
PROCEDURE: Chest 2V INDICATIONS: ACUTE COUGH/CONCERN FOR PE TECHNIQUE: 2 views of the chest were acquired. COMPARISON: None. FINDINGS: Surgical changes and devices: None. Lungs and pleura: No pleural effusions or pneumothorax. Lungs are clear. Mediastinum: Mediastinal contours appear normal. Heart size is normal. Bones and chest wall: No suspicious bony lesions. Overlying soft tissues appear unremarkable. IMPRESSION: No acute cardiopulmonary process. Reviewed by: Sarita Swanson MD on 09/15/2023 2:35 PM [facility] Approved by: Sarita Swanson MD on 09/15/2023 2:35 PM [facility] Station ID: [id number]
== END 2023-09-15 23:59 | disposition home or self-care (01) ==
LOC: DI.S 07:00
PROVIDERS: ATTEND Registered Nurse
DX: R05.1 Acute cough (principal)